=== PATIENT | female | born 1955 | race Asian ===

== ENCOUNTER 2019-02-03 12:19 | Emergency (ER) | payer MEDICAID, MEDICARE ==
[~2019-02-03] VITALS: Ht 160 cm; Wt 63.0 kg
[2019-02-03] MEDS ORDERED: ondansetron/PF 4mg/2ml inj IV ONE (12:35)
[2019-02-03] MEDS: morphine 4 MG/ML inj SYRINge IV PRN ×2 (12:40→13:51)
[2019-02-03 13:11] LABS: BASOPHILS % (AUTO) 0.3 % (0-1); EOSINOPHILS % (AUTO) 0.2 % (0-6); HEMATOCRIT 41.8 % (35.0-45.0); HEMOGLOBIN 14.1 g/dl (12.0-16.0); LYMPHOCYTES # (AUTO) 1.7 X10'3 (1.1-4.8); LYMPHOCYTES % (AUTO) 21.6 % (21-51); MEAN CORPUSCULAR HEMOGLOBIN 30.2 PG (27.0-31.0); MEAN CORPUSCULAR HGB CONC 33.7 g/dL (33.0-36.5); MEAN CORPUSCULAR VOLUME 89.5 FL (78-98); MEAN PLATELET VOLUME 9.5 FL (7.4-10.4); MONOCYTES # (AUTO) 0.4 X10'3 (0-0.9); MONOCYTES % (AUTO) 4.5 % (2-12); NEUTROPHILS # (AUTO) 5.9 X10'3 (1.8-7.7); NEUTROPHILS % (AUTO) 73.4 % (42-75); PLATELET COUNT 202 X10'3 (140-440); RED BLOOD COUNT 4.67 X10'6 (4.20-5.60); RED CELL DISTRIBUTION WIDTH 13.8 % (11.5-14.5)
[2019-02-03 13:23] LABS: ALANINE AMINOTRANSFERASE 28 U/L (12-78); ALBUMIN 3.9 G/DL (3.4-5.0); ALKALINE PHOSPHATASE 91 IU/L (46-116); ANION GAP 7 (8-16); ASPARTATE AMINO TRANSFERASE 23 U/L (10-37); BILIRUBIN,TOTAL 0.9 MG/DL (0.1-1.0); BLOOD UREA NITROGEN 20 MG/DL (7-18); BUN/CREATININE RATIO 19.2 (6.6-38.0); CALCIUM 9.1 MG/DL (8.5-10.1); CHLORIDE 107 MMOL/L (99-107); CREATININE 1.04 MG/DL (0.40-0.90); GLUCOSE 95 MG/DL (70-104); SODIUM 139 MMOL/L (135-145); TOTAL PROTEIN 7.9 G/DL (6.4-8.2); eGFR 53 ML/MIN
[2019-02-03] MEDS ORDERED: morphine 4 MG/ML inj SYRINge IV ONE (13:45)
[2019-02-03] MEDS ORDERED: HYDR-4353 PO (14:20)
--- NOTE | 2019-02-03 14:27 | NUR ---
MS 8MG 2 VIALS PULLED FROM Adreal. PT ONLY WANTED 4MG. THE 8MG MS ORDER WAS NON-AMEND PT REFUSED. MS 4MG GIVEN UNDER THE 4MG MS ORDER.
[2019-02-03 14:48] VITALS: BP 115/79
== END 2019-02-03 15:42 | disposition home or self-care (01) ==
LOC: ER 12:20
DX: S82.391A Other fracture of lower end of right tibia, initial encounter for closed fracture (principal); S82.64XA Nondisplaced fracture of lateral malleolus of right fibula, initial encounter for closed fracture; R79.1 Abnormal coagulation profile; Z79.899 Other long term (current) drug therapy; W17.89XA Other fall from one level to another, initial encounter; Y93.89 Activity, other specified; Y92.89 Other specified places as the place of occurrence of the external cause; Y99.8 Other external cause status
CPT/HCPCS: 29505; 36415; 73590; 80053; 85025; 85610; 96374; 96375; 96376; 99284; J2270; J2405